=== PATIENT | male | born 1975 | race Caucasian/White ===

== ENCOUNTER 2017-03-24 19:31 | Emergency (ER) | payer OTHER ==
[2017-03-24 19:45] VITALS: BMI 42.7
--- NOTE | 2017-03-24 20:02 | PDOC ---
History of Present Illness - General History Source: Patient Exam Limitations: No Limitations - History of Present Illness Initial Comments: 03/24/17 21:15 The patient is a 41 year old male with no significant past medical history who presents to the ED for 1 week of increasing pain to the right rib cage and right groin s/p mechanical fall. Patient reports he was running down a hill, when he slipped and slid on his knee, subsequently hitting his chest against the grill of a park car. States he sustained pain to the right rib cage radiating to the right scapula and pain to the right groin area, which progressively gotten worse over the past week. Patient reports his pain is worsen with movement, lying supine and upon deep inspiration. Initially took ibuprofen with no relief and was given tramadol and percocet from a friend with no relief. The patient denies fever, chills, cough, SOB, chest pain, and palpitations. The patient denies abdominal pain, nausea, vomiting, and diarrhea. Allergies: NKDA Social History: Cigarette smoker. No alcohol or drug use reported. Past Surgical History: None reported PCP: None reported <Precious Sharma - Last Filed: 03/24/17 21:15> <Kusum Burton - Last Filed: 03/25/17 21:56> - General Chief Complaint: Pain, Acute Stated Complaint: INJURY Time Seen by Provider: 03/24/17 19:58 Past History <Precious Sharma - Last Filed: 03/24/17 21:15> - Past Medical History Other medical history: Pt denies - Psycho/Social/Smoking Cessation Hx Suicidal Ideation: No Smoking History: Current every day smoker Number of Cigarettes Smoked Daily: 5 Information on smoking cessation initiated: No Hx Alcohol Use: No Drug/Substance Use Hx: No Substance Use Type: None <Kusum Burton - Last Filed: 03/25/17 21:56> - Past Medical History Allergies/Adverse Reactions: Allergies Allergy/AdvReac Type Severity Reaction Status Date / Time No Known Allergies Allergy Verified 03/24/17 19:45 Home Medications: Ambulatory Orders Ibuprofen [Motrin -] 600 mg PO TID #30 tablet 03/24/17 Methadone [Dolophine -] 80 mg PO DAILY 03/24/17 Methocarbamol [Robaxin -] 2 tab PO BID #40 tablet 03/24/17 Oxycodone HCl/Acetaminophen [Percocet 5-325 mg Tablet] 1 tab PO DAILY PRN Tramadol HCl 50 mg PO DAILY 03/24/17 Review of Systems - Review of Systems Able to Perform ROS?: Yes Comments:: 03/24/17 21:15 CONSTITUTIONAL: Absent: fever, no chills, no fatigue EYES: Absent: visual changes ENT: Absent: ear pain, no sore throat CARDIOVASCULAR: Absent: chest pain, no palpitations RESPIRATORY: Absent: cough, no SOB GI: Absent: abdominal pain, no nausea, no vomiting, no constipation, no diarrhea GENITOURINARY: Absent: dysuria, no frequency, no hematuria MUSCULOSKELETAL: +right rib cage pain radiating to the right scapula, right groin region pain Absent: no arthralgia SKIN: Absent: rash NEURO: Absent: headache <Precious Sharma - Last Filed: 03/24/17 21:15> *Physical Exam - Vital Signs Last Vital Signs Temp Pulse Resp BP Pulse Ox 99.1 F 86 18 152/87 98 03/24/17 19:41 03/24/17 19:41 03/24/17 19:41 03/24/17 19:41 03/24/17 19:41 - Physical Exam Comments: 03/24/17 21:15 GENERAL: Well-appearing, well-nourished. No apparent distress. HEENT: Normocephalic, atraumatic. PERRL, EOM intact. CARDIOVASCULAR: Normal S1, S2. Regular rate and rhythm. PULMONARY: Clear to auscultation bilaterally. ABDOMEN: Soft, non-distended, non-tender. EXTREMITIES: Normal ROM in all four extremities. No gross deformities. MUSCULOSKELETAL: R sided lower rib tenderness posteriorly, laterally and anteriorly SKIN: Warm, dry. No rash NEUROLOGICAL: No focal neurological deficits. <Precious Sharma - Last Filed: 03/24/17 21:15> - Vital Signs Last Vital Signs Temp Pulse Resp BP Pulse Ox 99.1 F 86 18 152/87 98 03/24/17 19:41 03/24/17 19:41 03/24/17 19:41 03/24/17 19:41 03/24/17 19:41 <Kusum Burton - Last Filed: 03/25/17 21:56> Medical Decision Making - Medical Decision Making 03/25/17 21:53 Pt comes with chest wall pain since last week, when he slipped in the rain and he slid into a parked car. He has been taking a friend's percocet 7.5mg and tramadol from another friend. He has an unmarked pill bottle with several tramadols and percocets inside. Pt's exam and CXR are normal. I will treat with NSAID and muscle relaxant. He will follow with PMD. <Kusum Burton - Last Filed: 03/25/17 21:56> *DC/Admit/Observation/Transfer - Attestations Scribe Attestion: 03/24/17 21:16 Documentation prepared by Precious Sharma, acting as medical laboratory assistant for Kusum Burton MD/DO. <Precious Sharma - Last Filed: 03/24/17 21:15> - Discharge Dispostion Admit: No <Kusum Burton - Last Filed: 03/25/17 21:56> Diagnosis at time of Disposition: Contusion, chest wall - Discharge Dispostion Disposition: HOME Condition at time of disposition: Stable - Prescriptions Prescriptions: Ibuprofen [Motrin -] 600 mg PO TID #30 tablet Methocarbamol [Robaxin -] 2 tab PO BID #40 tablet - Patient Instructions Printed Discharge Instructions: DI for Rib Contusion
[2017-03-24] MEDS ORDERED: KETOROLAC TROMETHAMINE 60 MG/2 ML VIAL IM ONE (20:19)
[2017-03-24] MEDS ORDERED: METHOCARBAMOL 500 MG TABLET PO ONE (20:20)
[2017-03-24] MEDS ORDERED: METHOCARBAMOL 500 MG TABLET ONE (21:05)
[2017-03-24] MEDS ORDERED: KETOROLAC TROMETHAMINE 60 MG/2 ML VIAL ONE (21:05)
[2017-03-24 21:45] VITALS: BP 148/86; PULSE 84; TEMP 98.9
== END 2017-03-24 21:48 | disposition home or self-care (01) ==
LOC: JER 19:31
PROC: 3E0233Z Introduction of Anti-inflammatory into Muscle, Percutaneous Approach (ICD-10-PCS; principal; 2017-03-24)
DX: S22.41XA Multiple fractures of ribs, right side, initial encounter for closed fracture (principal); W01.198A Fall on same level from slipping, tripping and stumbling with subsequent striking against other object, initial encounter; Y93.02 Activity, running; Y92.414 Local residential or business street as the place of occurrence of the external cause; Y99.8 Other external cause status; F17.210 Nicotine dependence, cigarettes, uncomplicated
CPT/HCPCS: 71020-TC; 71101-TC-RT; 96372; 99282-25